=== PATIENT | female | born 1985 | race Caucasian/White ===

== ENCOUNTER → 2016-11-26 | Outpatient (CLI) | payer OTHER ==
[~2016-11-26] MED LIST: ALBUTEROL INHALER PO; COLA100C PO; IBUP60TA PO; LABE20TAB PO; PERCOCET PO; PRENATAL VITAMIN PO; TYLENOL PO
--- NOTE | 2016-11-26 17:38 | REP ---
Clinical: Anatomical evaluation. Comparison: None . Findings: Examination demonstrates a single live intrauterine in cephalic presentation. motion is identified by technologist. Placenta is noted fundal and grade zero without evidence for placenta previa or abruption. Amniotic fluid volume is normal. Cervix measures 4.7 cm in length and appears closed. Nuchal cord cannot be excluded. Gestational age by current measurements 25 weeks 2 days with NASIM 03/09/2017 . FHR equals 144 beats per minute. BPD 6.3 cm 25 weeks 4 days HC 23.5 cm 25 weeks 4 days AC 20.6 cm 25 weeks 1 day FL 4.4 cm 24 weeks 3 days HL 4.3 cm 25 weeks 6 days HC/AC ratio 1.14 Estimated weight 752 grams ( 34th percentile). Anatomical assessment demonstrates normal structures including cranium, choroid plexus, cavum, cerebellum/posterior fossa, facial features, diaphragm, stomach, cord insertion/three-vessel cord, kidneys/bladder, and extremities. Limited evaluation of the lungs, heart/ventricular outflow tracts and spine. Impression: Single live intrauterine in cephalic presentation. Anatomical limitations as described above may warrant reevaluation. Remainder of the anatomical assessment is complete and normal. Nuchal cord cannot be excluded. Signed by Brennen Zimmerman MD 11/26/2016 05:29 P
== END ==
LOC: M RAD 16:32
PROVIDERS: ATTEND Advanced Practice Midwife
DX: Z36 Encounter for antenatal screening of mother (principal); Z3A.25 25 weeks gestation of pregnancy

== ENCOUNTER → 2016-12-10 | Outpatient (CLI) | payer OTHER ==
--- NOTE | 2016-12-10 17:31 | REP ---
Obstetric sonography: History: Supervision of followup anatomy. Findings: Scanning through the gravid uterus demonstrates a viable single intrauterine gestation in a breech lie. motion is observed and heart rate is recorded at 144 beats per minute. There is a fundal grade zero placenta without evidence of previa or abruption. Amniotic fluid is subjectively normal. Closed cervical length is measured transabdominally at 3.8 cm. No extrauterine abnormalities observed. There has been appropriate interval growth. Umbilical cord is seen draping across the shoulders. There is less than optimal visualization of the nose and lips, four-chamber heart, left ventricular outflow tract view, and abdominal wall cord insertion today due to position. The cord insertion and face and profile were previously noted. The following additional anatomic structures are identified today and felt to be unremarkable: cranium, choroid plexus, cavum, cerebellum and posterior fossa, lungs, right ventricular outflow tract view, diaphragm, left-sided stomach, three-vessel cord, kidneys and bladder, spine, upper and lower extremities. Biometry chart: BPD 7.1 cm = 28 weeks 3 days Head circumference 23.9 cm = 25 weeks 6 days Abdominal circumference 22.7 cm = 27 weeks 0 days Femur length 5.2 cm = 27 weeks 5 days Humeral length 4.7 cm = 27 weeks 4 days Cerebellar diameter 3.3 cm = 28 weeks 1 day HC/AC ratio normal 1.05, cephalic index normal 0.88, estimated weight 1044 grams 2 pounds 4 ounces 40th percentile for 27 weeks 2 days. Impression: Viable single intrauterine gestation at 27 weeks 3 days by today's composite sonographic criteria. Expected gestational age estimate based on prior sonography is 27 weeks 2 days. NASIM by prior sonography 03/09/2017. Four-chamber heart and left ventricular outflow tract views less than optimally seen again today. anatomic survey is otherwise complete. There has been appropriate interval growth. Signed by Delmar Banks MD 12/11/2016 12:23 P
== END ==
LOC: M RAD 14:54
PROVIDERS: ATTEND Obstetrics & Gynecology
DX: Z36 Encounter for antenatal screening of mother (principal); Z3A.27 27 weeks gestation of pregnancy

== ENCOUNTER 2017-03-05 06:09 | Inpatient (IN) | payer OTHER ==
[~2017-03-05] VITALS: Ht 167.6 cm; Wt 90.0 kg
[2017-03-05] VITALS (26 sets, daily range): BP systolic 112–151; BP diastolic 64–91
[~2017-03-05 06:09] MED LIST changes: -COLA100C PO; +COLA100C3 PO
[2017-03-05] MEDS ORDERED: LACTATED RINGER'S 1000 ML IV STA (08:09)
[2017-03-05 09:20] LABS: MEAN CORPUSCULAR HEMOGLOBIN 33.5 pg (27.0-33.0); MEAN CORPUSCULAR HGB CONC 35.1 g/dl (32.0-36.5); MEAN CORPUSCULAR VOLUME 95.4 fl (80.0-96.0); RED CELL DISTRIBUTION WIDTH 12.6 % (11.5-14.5); WHITE BLOOD COUNT 9.4 K/mm3 (4.0-10.0)
[2017-03-05] MEDS ORDERED: OXYTOCIN DRIP 30 UNITS in APPROPRIATE DILUENT 1 EA IV SCH (09:30)
[2017-03-05] MEDS: LR 1,000 ML IV SCH ×3 (09:45→17:48)
--- NOTE | 2017-03-05 09:46 | HPEPDOC ---
Obstetrical History & Physical General Date of Admission March 05, 2017 at 06:09 History of Present Illness Pam is a 31yo with SIUP at 39w3d presenting for IOL secondary to CHTN. She feels well today, no complaints. Feels good movement. Only occasional ctx. No VB or LOF. PMhx: mild intermittent asthma with prn albuterol course: History of prior delivery at 37wk when undergoing IOL for pre-E in Nov 2015 complicated by NRFHT (baseline 24hr UP 163mg) Chief Complaint: Induction of labor Information Provided By: Patient Care Care: Limited Care (Late to care at 25 weeks) Dating Final EDC: Mar 09, 2017 Final EDC by: LMP, 2nd trimester (US) Antepartum Course Diagnos(e)s CHTN, history of prior delivery at 37wk when undergoing IOL for pre-E in Nov 2015 complicated by NRFHT (baseline 24hr UP 163mg) Height (inches): 66 Pre- weight (lbs.): 189 Admission Weight (lbs.): 201 Change in Weight (lbs.): 12 Past Medical History Past Obstetrical History : Past Obstetrical History: Multigravida Date of Delivery: Nov 06, 2015 Gestation: 37 Type of Delivery: Ceserean section Sex of : Female Complications: Yes (IOL for pre-E at 37wk, for NRFHT at 2cm) 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 Past Medical History Medical History Mild intermittent asthma with prn albuterol Surgical History: Tonsilectomy Family History Significant Family History: No pertinent family hx Social History Marital Status: Family situation: Spouse/partner home Psychosocial History: No pertinent psych hx * Smoker: non-smoker Alcohol: Denies Drugs: denies Imunizations Tdap status: current Influenza Status: current Allergies Coded Allergies: Cat Dander (Verified Allergy, Unknown, 11/30/15) Dust (Verified Allergy, Unknown, 11/30/15) Molds & Smuts (Verified Allergy, Unknown, 11/30/15) Uncoded Allergies: ANESTHESIA (Adverse Reaction, Mild, 11/30/15) PT STATES IN 3RD GRADE WHEN SHE HAD TONSILS REMOVED SHE VOMITED ON TABLE IN OR. Medications Scheduled Labetalol HCl (LABETALOL HCl) 200 Mg Tab, 200 MG PO BID [ Vitamin] , 1 TAB PO DAILY Scheduled PRN Docusate Sodium (Colace) 100 Mg Cap, 100 MG PO QHSP PRN for CONSTIPATION Ibuprofen (Ibuprofen) 600 Mg Tab, 800 MG PO Q8HP PRN for PAIN Oxycodone/Acetaminophen (Percocet 5MG/325MG Tablet) 1 Tab Tab, 1 TAB PO Q4HP PRN for PAIN SCALE 1-5 [Albuterol Inhaler] , PO PRN PRN for PRN [Tylenol] , TAB PO PRN PRN for PAIN OR FEVER Physical Examination Physical Examination GENERAL: Alert and oriented times three. ABDOMEN: Gravid and non-tender to touch. FETUS: Is vertex (VTX) by TAUS HEART RATE: Regular rate and rhythm. LUNGS: Clear to auscultation (CTA). EXTREMITIES: trace edema of BLE Vital Signs/I&O Vital Signs Date Time Temp Pulse Resp B/P (MAP) Pulse Ox O2 Delivery O2 Flow Rate FiO2 03/05/17 06:15 98.0 71 137/86 (103) Laboratory Data 24H LABS Laboratory Tests 2 03/05/17 06:16: Serology Scanned Report Hepatitis B Testing 03/05/17 08:47: CBC/BMP Laboratory Tests 03/05/17 08:47 Red Blood Count 3.49 L, Mean Corpuscular Volume 95.4, Mean Corpuscular Hemoglobin 33.5 H, Mean Corpuscular Hemoglobin Concent 35.1, Red Cell Distribution Width 12.6 Pertinent Laboratoy Data Blood Type: A+ RBC Antibody Screen: Negative HIV: Negative Hepatitis B: Negative Hepatitis C: Unknown Rapid Plasma Reagin: Nonreactive Rubella: Immune Varicella: Immune Chlamydia/Gonorrhea: Negative Group B Streptococcus: Negative Glucose Tolerance Test: 125 Anatomy Ultrasound Ultrasound Date: Nov 26, 2016 Placenta Location: Fundal Normal Anatomy: Yes Placenta Previa: No Steroid Therapy Steroid Therapy: No Vaginal Examination Dilation: 1cm Effacement: 40-50% Station: -3 Cervical Consistency: Medium Cervical Position: Posterior Presentation: Cephalic presentation Assessment Variability: Moderate Accelerations: Positive Decelerations: None Tocometer Contractions: No Assessment/Plan Assessment Pam is a 31yo with SIUP at 39w3d presenting for IOL secondary to CHTN. Cephalic by TAUS. Cat I FHRT with rare ctx. SCE 1/50/-3, joe bulb placed. GBS negative. EFW 3400g by Andra. PMhx: mild intermittent asthma with prn albuterol course: History of prior delivery at 37wk when undergoing IOL for pre-E in Nov 2015 complicated by NRFHT (baseline 24hr UP 163mg) Plan Admit and orient Counseled and consented on TOLAC/IOL (joe bulb, pitocin, AROM) Placed joe bulb, plan for low dose pitocin (up to 6) until joe bulb falls out, then will titrate pitocin up per protocol and AROM when appropriate Diet: clear liquids Group B Streptococcus (GBS) negative Labs and intravenous (IV) per unit protocol. Lactated Ringers (LR): Bolus 1000 mL, then at 125 mL/hr Close eye to [facility] Anesthesia consult ordered for epidural later in labor MD VALERIA Vang KATRINA D. MD March 05, 2017 09:46
--- NOTE | 2017-03-05 19:39 | IPNPDOC ---
Text Note Date of Service The patient was seen on 03/05/17. NOTE Hdz bulb out at 1930. Will turn pitocin off for 1 hour to reset receptors and then titrate up per protocol Pt knows she can get epidural whenever she is in pain. Will plan to get good contraction pattern then perform AROM. Plan discussed with RN and patient. Cat I FHRT. Safe to proceed. Dr. Gisselle Ackerman MD [place] WILLEM VS,Saeid, I+O VS, Saeid, I+O Laboratory Tests 03/05/17 08:47 Red Blood Count 3.49 L, Mean Corpuscular Volume 95.4, Mean Corpuscular Hemoglobin 33.5 H, Mean Corpuscular Hemoglobin Concent 35.1, Red Cell Distribution Width 12.6 Vital Signs Date Time Temp Pulse Resp B/P (MAP) Pulse Ox O2 Delivery O2 Flow Rate FiO2 03/05/17 17:27 85 18 139/91 (107) 03/05/17 15:57 98.8 GISSELLE ACKERMAN MD March 05, 2017 19:39
[2017-03-06] VITALS (21 sets, daily range): BP systolic 104–207; BP diastolic 53–96
[2017-03-06] MEDS ORDERED: PROMETHAZINE INJ 25 MG/ML VIAL (J2550) IV PRN (01:30)
[2017-03-06] MEDS ORDERED: BUTORPHANOL 2 MG/ML INJ (J0595) IV PRN (01:30)
[2017-03-06 06:31] LABS: MEAN CORPUSCULAR HEMOGLOBIN 33.9 pg (27.0-33.0); MEAN CORPUSCULAR HGB CONC 35.6 g/dl (32.0-36.5); MEAN CORPUSCULAR VOLUME 95.4 fl (80.0-96.0); RED CELL DISTRIBUTION WIDTH 12.8 % (11.5-14.5); WHITE BLOOD COUNT 17.5 K/mm3 (4.0-10.0)
[2017-03-06] MEDS ORDERED: FENTANYL 2MCG/ML ROPIVACAINE 0.2% IN 0.9% NACL 200ML IVBAG As Ordered ONE (07:01)
[2017-03-06] MEDS: PRENATAL VITAMIN TAB PO SCH (09:00)
[2017-03-06] MEDS ORDERED: OXYTOCIN DRIP 30 UNITS in APPROPRIATE DILUENT 1 EA IV SCH (13:58)
[2017-03-06] MEDS ORDERED: RHOGAM 300 MCG (1500 IU) INJ (J2790) IM SCH (14:00)
[2017-03-06] MEDS ORDERED: DIBUCAINE 1% OINTMENT 30GM TOP PRN (14:00)
[2017-03-06] MEDS ORDERED: METOCLOPRAMIDE INJ 10MG/2ML VIAL (J2765) IV PRN (14:00)
[2017-03-06] MEDS ORDERED: ACETAMINOPHEN TAB 650MG DOSE (2X325MG) PO PRN (14:00)
[2017-03-06] MEDS ORDERED: MEASLES,MUMPS,RUBELLA VACCINE INJ (MMR-II) (90707) SC SCH (14:00)
[2017-03-06] MEDS ORDERED: IBUPROFEN 800 MG TAB PO PRN (14:00)
--- NOTE | 2017-03-06 14:08 | DNPDOC ---
[facility] Delivery Note Delivery Note DATE OF DELIVERY: March 05, 2017 at 06:09 PREDELIVERY DIAGNOSIS: 39 3/7 weeks' gestation and labor. POST DELIVERY DIAGNOSIS: Delivered. PROCEDURE: successful POST GRADUATE INTERN: , covering for Dr Cadena ANESTHESIA: dense epidural ESTIMATED BLOOD LOSS: 200 DELIVERY SUMMARY: Covering for Dr Cadena called by RN and baby at +3 station. I had not met the pt previously and I quickly obtained a hx. My exam confirms +3 and straight OA. Good effort with pushing, very dense epidural. at 1344 with placenta at 1349. No delay of the vtx and ant/post shoulders , ant right shoulder with compound right arm. Male infant in good shape on mother's abdomen. Spont cry and good tone. Cord C/C by FOB. Placenta intact. Pitocin going wide open and fundus firm. Small right inner labia lac noted, not bleeding, left alone. No perineal lacs. apgars 9/9, wt 6 lb 100 oz, 3030 gm. THOMAS MORENO MD Mar 06, 2017 14:08
[2017-03-06] MEDS: DOCUSATE SODIUM 100 MG CAP PO SCH (21:00)
[2017-03-07 06:03] VITALS: BP 151/97
[2017-03-07] MEDS: PRENATAL VITAMIN TAB PO SCH (08:21)
[2017-03-07] MEDS: DOCUSATE SODIUM 100 MG CAP PO SCH ×2 (08:22→20:54)
[2017-03-07 18:29] VITALS: BP 145/80
[2017-03-08 05:26] VITALS: BP 142/74
[2017-03-08] MEDS: DOCUSATE SODIUM 100 MG CAP PO SCH (08:37)
[2017-03-08] MEDS: PRENATAL VITAMIN TAB PO SCH (08:37)
[2017-03-08] MEDS ORDERED: IBUP-1114 PO (09:00)
[2017-03-08] MEDS ORDERED: COLA100C3 PO (09:00)
[2017-03-08] MEDS ORDERED: ACET50TA PO (09:00)
[2017-03-08] MEDS ORDERED: DIBU0.5O TOP (09:00)
--- NOTE | 2017-03-08 14:07 | DSES ---
DATE OF ADMISSION: 03/05/2017 DATE OF DISCHARGE: 03/08/2017 This lady is a 1 now para 2, who was admitted for induction of labor, chronic hypertension and attempting of vaginal after section (). She got fully dilated and delivered over intact perineum a live male infant 6 pounds 10 ounces, 3030 grams. scores of 9 and 9 at 1 and 5 minutes, respectively. She had a previous section for nonreassuring heart rate. On discharge, we discussed phlebitis, cystitis, mastitis, endometritis, cellulitis, diet, exercise, diet, pain management, perineal, breast and wound care. She is anxious to have control at her 6-week checkup while she is awaiting for to have a vasectomy. On discharge, blood pressure 142/74, respirations 18, pulse 87, temperature 98.1. Admitting hemoglobin was 11.7, hematocrit 33.3, platelets 130. Discharge hemoglobin 12.9, hematocrit 36.2, platelets 117. The rest of the examination is unremarkable. She is normocephalic, atraumatic. Neck with full range of motion. Pupils are equal and reactive to light. Distal pulses symmetric. No evidence of deep vein thrombosis (DVT), PE or superficial phlebitis. Chest is clear bilaterally at the bases. No wheezes or rhonchi. Abdomen is soft. Uterus two below. Perineum is intact. No rashes, lesions or pruritus. No arthralgia, myalgia. No complaints of cough, wheezes, shortness of breath or dyspnea on exertion. No chest pain. She is not bleeding. Neuro complete. No incontinency or frequency. No nausea, vomiting, diarrhea or constipation. No diabetic issues. PAST SURGICAL HISTORY: History of section. SOCIAL HISTORY: She does not smoke, drink or abuse drugs. There is no domestic violence. In summary, we have a term gestation admitted for induction of labor and attempted vaginal after section, which was successful. Discharge with medications, oral contraceptives. 6-week check.
--- NOTE | 2017-03-12 09:45 | IPN ---
DATE: 03/08/2017 This patient and requested circumcision of their male . After discussing risks and benefits of circumcision, the medical and nonmedical indications, the penile block and aftercare, they expressed understanding of the penile block and aftercare, signed and witnessed the consent form. We await the clearance by the herb doctor.
== END 2017-03-08 09:40 | disposition home or self-care (01) | DRG 774 ==
LOC: M LDI 06:09 → M OBS 03-06 15:55
PROVIDERS: ADMIT Student in an Organized Health Care Education/Training Program; ATTEND Student in an Organized Health Care Education/Training Program
PROC: 10E0XZZ Delivery of Products of Conception, External Approach (ICD-10-PCS; principal; 2017-03-05)
PROC: 3E033VJ Introduction of Other Hormone into Peripheral Vein, Percutaneous Approach (ICD-10-PCS; 2017-03-05)
DX: O10.02 Pre-existing essential hypertension complicating childbirth (principal); O34.211 Maternal care for low transverse scar from previous cesarean delivery; Z37.0 Single live birth; Z3A.39 39 weeks gestation of pregnancy; Z79.899 Other long term (current) drug therapy